=== PATIENT | female | born 1995 | race Hispanic/Latino ===

== ENCOUNTER 2018-01-06 08:12 | Emergency (ER) | payer BC, MEDICAID ==
[2018-01-06] MEDS ORDERED: Sodium Chloride 0.9% 1,000 ML IV ONE (08:28)
[2018-01-06] MEDS ORDERED: Piperacillin/Tazobact 3.375 gm 100 ML IVPB STA (08:30)
--- NOTE | 2018-01-06 08:34 | ED PDOC ---
Arrival/HPI - General Chief Complaint: Shortness Of Breath Time Seen by Provider: 01/06/18 08:13 Historian: Parent (Mother) EM Caveat: Acuity of Condition - Critical Care Critical Care Minutes: 60 minutes - History of Present Illness Narrative History of Present Illness (Text): 01/06/18 08:28 A 22 year old female, whose past medical history includes cerebral palsy, tracheostomy tube (placed on 04/18), gastrostomy tube, is brought into the emergency department via EMS with mother from a cruise ship with complaint of worsening shortness of breath. The patient's mother states that she noticed the patient to have heavy breathing 2 days ago. The patient's mother is requesting the patient be transferred to a different institution. ROS/HPI limited due to patient's unresponsive condition. PMD: Dr. Dallas Nagel Time/Duration: Other (2 Days) Symptom Onset: Sudden Symptom Course: Unchanged Activities at Onset: Rest, Light Context: Other (Cruise Ship) Associated Symptoms (Text): 01/06/18 09:20 Mother reports that the patient is normally unresponsive. She does not respond to painful or verbal stimuli. While on the cruise ship she became short of breath. She was treated in the intensive care unit on the cruise ship. She had x -rays done which showed a right lower lobe pneumonia. She was given Ancef and Zithromax on the ship. Patient is in severe respiratory distress. She tachypnic , tachycardic and unresponsive. She is extremely hypoxic with a pulse oximetry of approximately 80 despite 100% oxygen. Mother reports that she wants everything possible done for the patient. The mother is insistent on having the patient transferred to their home [facility] [place]. I discussed in detail with her that I feel that this was not in the patient's best interest. I feel that the patient is not stable enough for such for transfer. I discussed this with the patient's PMD Dr. Nagel [phone], and he concurs. But he also reports that he will do whatever the family wants to do. The father arrived and I also discussed this with him. He reports that he will speak directly with Dr. Nagel and then make a decision. In the meantime the patient has been placed on a ventilator and workup has been begun. Past Medical History - Provider Review Nursing Documentation Reviewed: Yes - Pulmonary Other/Comment: Trach - Neurological Other/Comment: CP - Psychiatric Hx Psychophysiologic Disorder: No Hx Substance Use: No - Surgical History Other/Comment: Trach. B/L hip. Back Sx Family/Social History - Physician Review Nursing Documentation Reviewed: Yes Family/Social History: No Known Family HX Smoking Status: Never Smoked Hx Alcohol Use: No Hx Substance Use: No Allergies/Home Meds Allergies/Adverse Reactions: Allergies No Known Allergies Allergy (Verified 01/06/18 08:17) Home Medications: Home Meds Medication Instructions Recorded Confirmed Baclofen [Lioresal] 10 mg GT TID 01/06/18 01/06/18 Clonazepam [Klonopin] 1 ng GT TID 01/06/18 01/06/18 Phenytoin [Dilantin] 2.5 ml GT BID 01/06/18 01/06/18 Topiramate [Topamax] 25 mg PO DAILY 01/06/18 01/06/18 levETIRAcetam [Keppra] 300 mg GT TID 01/06/18 01/06/18 traZODone [Desyrel] 50 mg GT DAILY 01/06/18 01/06/18 Review of Systems - Review of Systems Systems not reviewed;Unavailable: Acuity of Condition Respiratory: SOB Physical Exam - Physical Exam Physical Exam Limitations: Clinical Condition Vital Signs Reviewed: Yes Vital Signs Temp Pulse Resp BP Pulse Ox 01/06/18 12:06 100 F H 150 H 22 129/59 L 92 L 01/06/18 11:57 147 H 28 H 125/84 90 L 01/06/18 11:00 100 F H 01/06/18 10:53 100 F H 151 H 25 H 139/97 H 92 L 01/06/18 10:20 153 H 01/06/18 10:18 154/97 H 01/06/18 10:05 102.2 F H 159 H 25 H 97 01/06/18 10:00 102.2 F H 01/06/18 09:58 102.2 F H 160 H 28 H 120/70 90 L 01/06/18 09:08 152 H 28 H 85 L Pulse: Tachycardic Respiratory Rate: Tachypneic Appearance: Positive for: Ill-Appearing - Systems Exam Head: Present: Atraumatic, Normocephalic Pupils: Present: PERRL Extroacular Muscles: Present: EOMI Conjunctiva: Present: Normal Mouth: Present: Moist Mucous Membranes Neck: Present: Normal Range of Motion, Other (Tracheostomy tube) Respiratory/Chest: Present: Respiratory Distress (Severe distress. ), Wheezes ( Wheezing Throughout), Rhonchi (Rhonchi Throughout. ), Tachypneic Cardiovascular: Present: Tachycardic Abdomen: Present: Feeding Tubes (G- Tube). No: Tenderness, Distention, Peritoneal Signs Back: Present: Normal Inspection Upper Extremity: Present: Normal Inspection. No: Cyanosis, Edema Lower Extremity: Present: Normal Inspection. No: Edema Neurological: Present: GCS=15, CN II-XII Intact, Other (Unreponsive to verbal or painful stimuli which is patient's normal according to mother. ) Skin: Present: Warm, Dry, Normal Color. No: Rashes Medical Decision Making ED Course and Treatment: 01/06/18 08:44 Impression: A 22 year old female is brought into the emergency department by mother from cruise ship for worsening shortness of breath. Plan: -- EKG -- Chest X-ray -- Labs -- Blood/ Urine Culture -- Zosyn and IV Fluids -- Urinalysis -- Reassess and disposition Progress Notes: 01/06/18 08:30: Patient's mother is requesting for patient to be transferred to a different institution. 01/06/18 08:56: Patient's mother requested Dr. Mauro Nagel be contacted. She is requesting for patient to be transferred to [place], [place]. Mother was made aware that the patient is not at all stable to be transferred. Mother was still insistent on patient being transferred. 01/06/18 09:00: Case discussed in detail with Dr. Nagel and made aware of patient's critical condition. He is in agreement with me. He prefers to have the patient admitted here and will accept the transfer at any time if patient's parents are insistent on a transfer. He thinks the patient's father is more reasonable than the mother. Waiting for father to arrive. 01/06/18 09:15: Patient's father arrived to emergency department. I discussed patient's condition with the father. He is leaning toward transferring the patient. States that he will speak to Dr. Nagel directly. 01/06/18 09:27 EKG shows sinus tachycardia rate approximately [address] or T-wave changes. Chest X-ray Dictator : Mac Cohn MD Report Date : 01/06/2018 09:38:12 IMPRESSION: Large right lower lobe infiltrate/ right pleural effusion. Satisfactory position of tracheostomy device. 01/06/18 09:56: Case discussed in detail with Dr. Boyd who will come evaluate patient in the emergency department. 01/06/18 10:08: Case discussed in detail with Dr. Bill who accepts patient to his service. Requests Dr. Guaman and Dr. Soto on consult. 01/06/18 10:08: Discussed laboratory results with mother and stated that I will not be transferring the patient. Mother is now in agreement. Dr. Bill and Dr. Sanchez will come evaluate patient in the emergency department. 01/06/18 10:26: Case discussed in detail with Dr. Herr states that he already made rounds today and is not coming back to the hospital to see the patient. 01/06/18 10:57: Dr. Boyd and Dr. Bill are here and saw the patient. We do not have the proper size equipment to take care of this patient at our hospital. We spoke with Dr. Geller at [facility] who accepts the patient in transfer. He will be sending his team. This is necessary as the patient is critically ill. 01/06/18 11:32: Dr. Boyd called ENT and Anesthesia to come change the tracheostomy tube prior to transfer. 01/06/18 11:53: Anesthesiologist at bedside. Patient's parents changes the tracheostomy tube. 01/06/18 12:14: Patient experience tonic clonic seizure which resolved with 1 mg of Ativan IV. 01/06/18 12:49 [facility] team is here for transport. - Lab Interpretations Lab Results: 01/06/18 08:40 01/06/18 09:00 Lab Results 01/06/18 10:00: Urine Color Light yellow, Urine Appearance Clear, Urine pH 6.0, Ur Specific [place] >= 1.030, Urine Protein >=300 H, Urine Glucose (UA) Negative , Urine Ketones Negative, Urine Blood Large H, Urine Nitrate Negative, Urine Bilirubin Negative, Urine Urobilinogen 0.2, Ur Leukocyte Esterase Negative, Urine RBC 10 - 15, Urine WBC 0 - 2, Ur Epithelial Cells 0 - 2, Urine Bacteria Trace 01/06/18 09:00: Sodium 142, Chloride 99, Potassium 5.0, Carbon Dioxide 33, Anion Gap 15, BUN 12, Creatinine 0.2 L, Est GFR ( Amer) > 60, Est GFR ( Non-Af Amer) > 60, Random Glucose 182 H, Calcium 8.4, Phosphorus 4.7 H, Magnesium 2.2, Total Bilirubin 0.2, AST 31, ALT 43, Alkaline Phosphatase 127 H, Total Protein 6.7, Albumin 3.6, Globulin 3.1, Albumin/Globulin Ratio 1.1 01/06/18 09:00: pO2 146 H, VBG pH 7.11 L*, VBG pCO2 121.0 H*, VBG HCO3 38.4 H, VBG Total CO2 42.1 H, VBG O2 Sat (Calc) 100.2 H, VBG Base Excess 4.6 H, VBG Potassium 5.3 H, Sodium 138.0, Chloride 103.0, Glucose 195 H, Lactate 0.4 L, FiO2 21.0, Venous Blood Potassium 5.3 H 01/06/18 09:00: pCO2 117 H*, pO2 111.0 H, HCO3 33.9 H, ABG pH 7.07 L*, ABG Total CO2 37.5 H, ABG O2 Saturation 99.4 H, ABG Base Excess 0.1, ABG Potassium 4.7, Sodium 137.0, Chloride 103.0, Glucose 173 H, Lactate 0.5 L, Mechanical Rate 44, FiO2 100.0, PEEP 5, Pressure Support 25, Arterial Blood Potassium 4.7 01/06/18 08:40: WBC 17.5 H, RBC 5.52, Hgb 17.5 H, Hct 50.8 H, MCV 92.0, MCH 31.7 , MCHC 34.4, RDW 14.5, Plt Count 154, MPV 11.7 H, Gran % 67.0, Lymph % (Auto) 17.4 L, [place] % (Auto) 13.7 H, Eos % (Auto) 1.6, Baso % (Auto) 0.3, Gran # 11.72 H, Lymph # (Auto) 3.1, [place] # (Auto) 2.4 H, Eos # (Auto) 0.3, Baso # (Auto) 0.05 I have reviewed the lab results: Yes - RAD Interpretation Radiology Orders: 01/06/18 08:28 CHEST PORTABLE [RAD] Stat - EKG Interpretation Interpreted by ED Physician: Yes Type: 12 lead EKG - Medication Orders Current Medication Orders: Discontinued Medications Acetaminophen (Tylenol 325 Mg Supp) 325 mg RC STAT STA Stop: 01/06/18 09:51 Last Admin: 01/06/18 10:00 Dose: 325 mg MAR Pain/Vitals Document 01/06/18 10:00 GMI (Rec: 01/06/18 10:22 GMI [id number]) Pain Reassessment Is This A Pain ReAssessment? No Vitals Temperature (97.6 F-99.6 F) 102.2 F Temperature Source Rectal Re-Assess: MAR Pain/Vitals Document 01/06/18 11:00 GMI (Rec: 01/06/18 12:28 GMI [facility] [id number]) Pain Reassessment Is This A Pain ReAssessment? No Vitals Temperature (97.6 F-99.6 F) 100 F Temperature Source Rectal Sodium Chloride (Sodium Chloride 0.9%) 1,000 mls @ 2,000 mls/hr IV .Q30M ONE Stop: 01/06/18 08:57 Last Admin: 01/06/18 09:10 Dose: 2,000 mls/hr Piperacillin Sod/Tazobactam Sod (Zosyn 3.375 In Ns 100ml) 100 mls @ 200 mls/hr IVPB STAT STA PRN Reason: Protocol Stop: 01/06/18 08:59 Last Admin: 01/06/18 09:09 Dose: 200 mls/hr Vancomycin HCl (Vancomycin 1gm) 1 gm in 250 mls @ 167 mls/hr IVPB STAT STA PRN Reason: Protocol Stop: 01/06/18 11:44 Last Admin: 01/06/18 10:29 Dose: 167 mls/hr eMAR Start Stop Document 01/06/18 10:29 GMI (Rec: 01/06/18 10:30 GMI [facility] [id number]) Intravenous Solution Start Date 01/06/18 Start Time 10:30 Lorazepam (Ativan) 1 mg IVP ONCE ONE Stop: 01/06/18 12:24 Last Admin: 01/06/18 12:15 Dose: 1 mg IVP Administration Document 01/06/18 12:15 GMI (Rec: 01/06/18 12:35 GMI [facility] [id number]) Charges for Administration # of IVP Administrations 1 Methylprednisolone (Solu-Medrol) 125 mg IVP ONCE ONE Stop: 01/06/18 11:54 Last Admin: 01/06/18 12:27 Dose: 125 mg - Scribe Statement The provider has reviewed the documentation as recorded by the Cydney Payne Provider Scribe Attestation: All medical record entries made by the Zoraidaibe were at my direction and personally dictated by me. I have reviewed the chart and agree that the record accurately reflects my personal performance of the history, physical exam, medical decision making, and the department course for this patient. I have also personally directed, reviewed, and agree with the discharge instructions and disposition. Disposition/Present on Arrival - Present on Arrival Any Indicators Present on Arrival: No History of DVT/PE: No History of Uncontrolled Diabetes: No Urinary Catheter: No History of Decub. Ulcer: No History Surgical Site Infection Following: None - Disposition Have Diagnosis and Disposition been Completed?: Yes Diagnosis: Pneumonia, Seizure, Hypercarbia, Hypoxia, Respiratory failure Disposition: Transfer [facility] Disposition Time: 12:50 Patient Plan: Transfer To ([facility]) Condition: CRITICAL Referrals: Dylan Cespedes, [Primary Care Provider] - Follow up with primary Forms: UserApp (Amharic)
[2018-01-06 09:00] LABS: BASO # 0.05 K/mm3 (0.0-2.0); BASO % 0.3 % (0.0-3.0); EOS # 0.3 (0.0-0.7); EOS % 1.6 % (1.5-5.0); GRAN # 11.72 (1.4-6.5); HEMOGLOBIN 17.5 g/dL (12.0-16.0); LYMPH # 3.1 (1.2-3.4); LYMPH % 17.4 % (22.0-35.0); MEAN CORPUSCULAR HEMOGLOBIN 31.7 pg (25.0-35.0); MEAN CORPUSCULAR HGB CONC 34.4 g/dl (31.0-37.0); MEAN PLATELET VOLUME 11.7 fl (7.0-11.0); MONO # 2.4 (0.1-0.6); MONO % 13.7 % (1.0-6.0); RBC 5.52 10^6/uL (3.5-6.1); RED CELL DISTRIBUTION WIDTH 14.5 % (11.5-14.5); WHITE BLOOD COUNT 17.5 10^3/ul (4.5-11.0)
[2018-01-06 09:38] LABS: ARTERIAL BLOOD GAS HCO3 33.9 mmol/L (21-28); ARTERIAL BLOOD GAS O2 SAT 99.4 % (95-98); ARTERIAL BLOOD GAS TCO2 37.5 mmol.L (22-28)
[2018-01-06 09:39] LABS: ARTERIAL BLOOD GAS PCO2 117 mm/Hg (35-45); ARTERIAL BLOOD GAS PH 7.07 (7.35-7.45)
--- NOTE | 2018-01-06 09:40 | RAD ---
HISTORY: Sepsis patient. COMPARISON: No prior. FINDINGS: LUNGS: Consolidative changes of both lung bases right greater than left. PLEURA: Right pleural effusion inseparable from right lower lobe infiltrate. CARDIOVASCULAR: No radiographic findings to suggest acute or significant cardiovascular disease. OSSEOUS STRUCTURES: No significant abnormalities. Cash rods are incompletely visualized thoracolumbar spine. VISUALIZED UPPER ABDOMEN: Normal. OTHER FINDINGS: Stable, satisfactory position of tracheostomy device. IMPRESSION: Large right lower lobe infiltrate/ right pleural effusion. Satisfactory position of tracheostomy device.
[2018-01-06 09:42] LABS: VENOUS BLOOD GAS BASE EXCESS 4.6 mmol/L (0.0-2.0); VENOUS BLOOD GAS PO2 146 mm/Hg (30-55)
[2018-01-06 09:44] LABS: VENOUS BLOOD PH 7.11 (7.32-7.43)
[2018-01-06 09:56] LABS: ALB/GLOB RATIO 1.1 (1.1-1.8); ALBUMIN 3.6 g/dL (3.0-4.8); ALT/SGPT 43 U/L (7-56); AST/SGOT 31 U/L (14-36); BLOOD UREA NITROGEN 12 mg/dL (7-21); CALCIUM 8.4 mg/dL (8.4-10.5); GFR AFRICAN-AMERICAN > 60; GFR NON-AFRICAN AMERICAN > 60
[2018-01-06 10:04] LABS: URINE BILIRUBIN NEGATIVE (NEGATIVE); URINE BLOOD LARGE (NEGATIVE); URINE GLUCOSE (UA) NEGATIVE (NEGATIVE); URINE LEUKOCYTE ESTERASE NEGATIVE Leu/uL (NEGATIVE); URINE PROTEIN >=300 mg/dL (<30 mg/dL); URINE UROBILINOGEN 0.2 E.U./dL (<1 E.U./dL)
[2018-01-06 10:06] LABS: URINE APPEARANCE CLEAR (CLEAR); URINE COLOR LIGHT YELLOW (YELLOW)
[2018-01-06 10:14] LABS: URINE BACTERIA TRACE (NEG); URINE EPITHELIAL CELLS 0 - 2 /hpf (0-5); URINE WBC 0 - 2 /hpf (0-6)
[2018-01-06] MEDS ORDERED: Vancomycin 1gm in NS 250ml 1 GM/250 ML BAG IVPB STA (10:15)
[2018-01-06 11:07] VITALS: TEMP 100
[2018-01-06 12:07] VITALS: PULSE 150
[2018-01-06 13:57] VITALS: BP 91/62; RESP 24; O2SAT 92
--- NOTE | 2018-01-07 08:49 | CARD ---
APPROVED REPORT EKG Measurement Heart [id number] MA [id number] <Conclusion> Sinus tachycardia Right axis deviation RSR' or QR pattern in V1 suggests right ventricular conduction delay PRWP
== END 2018-01-06 14:01 | disposition short-term general hospital (02) ==
LOC: ED 08:12
DX: J18.9 Pneumonia, unspecified organism (principal); R56.9 Unspecified convulsions; J96.92 Respiratory failure, unspecified with hypercapnia; R09.02 Hypoxemia; G80.9 Cerebral palsy, unspecified
CPT/HCPCS: 36600; 71045; 80053; 81001; 82803; 82948; 83735; 84100; 85025; 87040; 87086; 93005; 96374; 96375; 99291; J2060; J2543; J2930; J7030